=== PATIENT | female | born 1995 | race Caucasian/White ===

== ENCOUNTER 2017-03-19 10:56 | Emergency (ER) | payer SELFPAY ==
[~2017-03-19] VITALS: Ht 170.2 cm; Wt 63.6 kg
[~2017-03-19 10:56] MED LIST changes: -MOTRIN800 MG PO; -ULTRAM50 MG PO; -ZOFRAN ODT4 MG PO
[2017-03-19] MEDS ORDERED: ZOFRAN ODT4 MG PO (13:16)
[2017-03-19] MEDS ORDERED: ULTRAM50 MG PO (13:16)
[2017-03-19] MEDS ORDERED: MOTRIN800 MG PO (13:16)
[2017-03-19 13:29] VITALS: BP 102/69
== END 2017-03-19 13:30 | disposition home or self-care (01) ==
LOC: EME 10:56
DX: N83.202 Unspecified ovarian cyst, left side (principal); J45.909 Unspecified asthma, uncomplicated; F32.9 Major depressive disorder, single episode, unspecified; Z97.5 Presence of (intrauterine) contraceptive device; Z87.891 Personal history of nicotine dependence; Z88.0 Allergy status to penicillin
CPT/HCPCS: 99281; 99283

== ENCOUNTER → 2017-03-19 | Outpatient (CLI) | payer SELFPAY ==
[~2017-03-19] MED LIST: AMOX TR-K CLV1 EAC4 PO; ATARAX,VISTARIL25 MG PO; BENADRYL50 MG PO; CAMILA0.35 MG PO; CLEOCIN300 MG PO; IBUPROFEN800 MG PO; LEXAPRO10 MG PO; MACROBID100 MG PO; METRONIDAZOLE500 MG PO; MOTRIN800 MG PO; NAPROSYN500 MG PO; NEXPLANON68 MG SC; NORCO 5/3251 TABLET PO; PREDNISONE20 MG PO; PRENATAL TABLE1 EAC3 PO; PYRIDIUM200 MG PO; TYLENOL REGULA325 MG PO; ULTRAM50 MG PO; ZANTAC75 M1 PO; ZOFRAN ODT4 MG PO; ZOFRAN4 MG PO; ZYRTEC10 M3 PO
== END | disposition home or self-care (01) ==
LOC: RAD 08:41
DX: R19.04 Left lower quadrant abdominal swelling, mass and lump (principal)
CPT/HCPCS: 76705

== ENCOUNTER 2017-08-16 19:37 | Inpatient (IN) | payer OTHER ==
[~2017-08-16] VITALS: Ht 170.2 cm; Wt 71.0 kg
[~2017-08-16 19:37] MED LIST changes: +FLAGYL250 MG PO; +MOTRIN800 MG PO; +PERCOCET 5/31 TABLET PO; +ULTRAM50 MG PO; +VITAMIN B COMP1 EACH PO; +VITAMIN D400 UNIT PO; +ZOFRAN ODT4 MG PO; +ZOLOFT50 MG PO
[2017-08-16 20:23] LABS: BASOPHIL (%) 0.4 % (0-1); EOSINOPHIL (%) 0.6 % (0-5); EOSINOPHIL COUNT 0.1 K/uL (0-0.3); HEMOGLOBIN 14.1 G/DL (11.9-15.5); IMMATURE GRANULOCYTE (%) 0.4 % (0.0-0.7); LYMPHOCYTE (%) 20.4 % (15-42); LYMPHOCYTE COUNT 1.6 K/uL (1.0-2.8); MCH 29.4 PG (29.0-34.0); MCHC 34.4 G/DL (30.0-36.0); MCV 85.4 FL (83-99); MONOCYTE (%) 5.1 % (3-12); MONOCYTE COUNT 0.4 K/uL (0-0.8); NEUTROPHIL (%) 73.1 % (45-76); NEUTROPHIL COUNT 5.7 K/uL (1.8-6.4); PLATELET COUNT 268 K/uL (156-360); RBC DIS.WIDTH-CV 14.4 % (11.8-14.6); RBC DIS.WIDTH-SD 44.9 % (39-53); WHITE BLOOD COUNT 7.9 K/uL (4.1-10.2)
[2017-08-16 20:32] LABS: CHLORIDE 111 mEq/L (99-109); POTASSIUM 3.7 mEq/L (3.7-5.4); SODIUM 144 mEq/L (136-147)
[2017-08-16 20:34] LABS: GLUCOSE 90 mg/dL (70-99)
[2017-08-16 20:37] LABS: SERUM ETHYL ALCOHOL 109 mg/dL
[2017-08-16 20:38] LABS: CREATININE 0.7 mg/dL (0.6-1.3); GFR ESTIMATE (CALCULATED) > 59 mL/min/
[2017-08-16 20:39] LABS: UREA NITROGEN (BUN) 5 mg/dL (9-23)
[2017-08-16 20:46] LABS: QUANTITATIVE HCG < 4.0 MIU/ML
[2017-08-16 20:54] LABS: AMPHETAMINE NEGATIVE (500 ng/mL); BARBITURATES NEGATIVE (200 ng/mL); BENZODIAZEPINES NEGATIVE (150 ng/mL); BUPRENORPHINE NEGATIVE (10 ng/mL); COCAINE NEGATIVE (150 ng/mL); METHADONE NEGATIVE (200 ng/mL); METHAMPHETAMINE NEGATIVE (500 ng/mL); OPIATES (MORPHINE) NEGATIVE (100 ng/mL); OXYCODONE NEGATIVE (100 ng/mL); PHENCYCLIDINE NEGATIVE (25 ng/mL); PROPOXYPHENE NEGATIVE (300 ng/mL); THC CANNABINOIDS PRESUMPTIVE POSITIVE (50 ng/mL); TRICYCLIC ANTIDEPRESSANTS NEGATIVE (300 ng/mL)
[2017-08-16 22:42] LABS: APPEARANCE SL.HAZY ((CLEAR)); BILIRUBIN NEGATIVE; BLOOD NEGATIVE; COLOR STRAW ((YELLOW)); GLUCOSE (STRIP) NEGATIVE; KETONES NEGATIVE; LEUKOCYTES NEGATIVE; NITRITE NEGATIVE; PROTEIN (STRIP) NEGATIVE; SPECIFIC GRAVITY 1.002 (1.000-1.030); UROBILINOGEN 0.2 MG/DL (0.2-1.0)
[2017-08-16 22:46] LABS: BACTERIA RARE /HPF; EPITHELIAL CELLS RARE /HPF; MUCUS NONE SEEN /LPF; RED BLOOD CELLS NONE SEEN /HPF (0-5); UCUL ADDED? NO; WHITE BLOOD CELLS 0-5 /HPF (0-5)
[2017-08-17 14:32] VITALS: BP 128/86
[2017-08-17 15:53] VITALS: BP 128/86
[2017-08-18 08:24] VITALS: BP 110/63
[2017-08-18 15:16] VITALS: BP 128/87
[2017-08-19 07:57] VITALS: BP 115/59
[2017-08-19 15:55] VITALS: BP 111/55
[2017-08-20 08:19] VITALS: BP 99/50
[2017-08-20] MEDS ORDERED: TRAZODONE HCL50 MG PO (09:51)
[2017-08-20] MEDS ORDERED: SERTRALINE HCL100 MG PO (09:51)
== END 2017-08-20 16:15 | disposition home or self-care (01) | DRG 881 ==
LOC: EME 19:37 → EDOF 08-17 12:46 → 1WEST 08-17 12:46 → ENRESERV 08-17 14:00 → 1WEST 08-17 14:32
PROVIDERS: Emergency Medicine
DX: F43.21 Adjustment disorder with depressed mood (principal); R45.851 Suicidal ideations; F12.10 Cannabis abuse, uncomplicated; F17.200 Nicotine dependence, unspecified, uncomplicated; F41.9 Anxiety disorder, unspecified; J45.909 Unspecified asthma, uncomplicated; Z88.0 Allergy status to penicillin
CPT/HCPCS: 80048; 81003; 84702; 84999; 85025; 90837; 97150 GO; 97165 GO; 99281; 99285; G0480; Q0177

== ENCOUNTER 2017-09-02 22:45 | Emergency (ER) | payer OTHER ==
[~2017-09-02] VITALS: Ht 165.1 cm; Wt 63.5 kg
[~2017-09-02 22:45] MED LIST changes: +SERTRALINE HCL100 MG PO; +TRAZODONE HCL50 MG PO
[2017-09-02 22:46] VITALS: BP 132/96
[2017-09-02 23:09] LABS: BASOPHIL (%) 0.7 % (0-1); BASOPHIL COUNT 0.1 K/uL (0-0.1); EOSINOPHIL COUNT 0.6 K/uL (0-0.3); HEMATOCRIT 43.4 % (36.0-46.0); HEMOGLOBIN 15.1 G/DL (11.9-15.5); IMMATURE GRANULOCYTE (%) 0.6 % (0.0-0.7); LYMPHOCYTE (%) 31.4 % (15-42); LYMPHOCYTE COUNT 3.2 K/uL (1.0-2.8); MCH 29.5 PG (29.0-34.0); MCHC 34.8 G/DL (30.0-36.0); MCV 84.8 FL (83-99); MONOCYTE (%) 4.9 % (3-12); MONOCYTE COUNT 0.5 K/uL (0-0.8); NEUTROPHIL (%) 56.4 % (45-76); NEUTROPHIL COUNT 5.7 K/uL (1.8-6.4); PLATELET COUNT 288 K/uL (156-360); RBC DIS.WIDTH-SD 43.6 % (39-53); RED BLOOD COUNT 5.12 M/uL (3.80-5.20)
[2017-09-02 23:19] LABS: CHLORIDE 108 mEq/L (99-109); POTASSIUM 3.3 mEq/L (3.7-5.4); SODIUM 144 mEq/L (136-147)
[2017-09-02 23:21] LABS: GLUCOSE 106 mg/dL (70-99)
[2017-09-02 23:24] LABS: SERUM ETHYL ALCOHOL 156 mg/dL
[2017-09-02 23:25] LABS: CREATININE 0.8 mg/dL (0.6-1.3); GFR ESTIMATE (CALCULATED) > 59 mL/min/
[2017-09-02 23:26] LABS: UREA NITROGEN (BUN) 8 mg/dL (9-23)
[2017-09-02 23:28] LABS: ACETAMINOPHEN (TYLENOL) < 10 mcg/mL (10-30); SALICYLATE < 5.0 MG/DL (15-30)
[2017-09-02 23:37] LABS: QUANTITATIVE HCG < 4.0 MIU/ML
== END 2017-09-02 23:58 | disposition left against medical advice (07) ==
LOC: EME 22:45
PROVIDERS: Emergency Medicine
DX: R45.851 Suicidal ideations (principal); T43.222A Poisoning by selective serotonin reuptake inhibitors, intentional self-harm, initial encounter; R00.0 Tachycardia, unspecified; F17.200 Nicotine dependence, unspecified, uncomplicated
CPT/HCPCS: 80048; 81003; 84702; 85025; 93005; G0480